=== PATIENT | female | born 1960 | race Caucasian/White ===

== ENCOUNTER 2016-08-11 21:37 | Emergency (ER) | payer OTHER ==
[~2016-08-11] VITALS: Ht 162.6 cm; Wt 63.5 kg
[~2016-08-11 21:37] MED LIST: BUFFERIN LOW DO81 MG PO; MOTRIN 600 MG600 MG PO; PAROXETINE HYDR10 MG PO; PAXIL10 MG PO; VIBRAMYCIN 100100 MG PO; XANAX0.5 MG PO
--- NOTE | 2016-08-11 22:14 | ED GI/GU/ABDOMINAL COMPLAINT ---
History of Present Illness General Chief Complaint: Abdominal Pain/Flank Pain Stated Complaint: ABDOMINAL PAIN Source: patient Exam Limitations: no limitations Vital Signs & Intake/Output Vital Signs & Intake/Output Vital Signs Date Time Temp Pulse Resp B/P B/P Pulse O2 O2 Flow FiO2 Mean Ox Delivery Rate 08/12 0004 97.9 64 18 124/88 100 Room Air 08/11 2148 98.8 62 20 120/84 99 ED Intake and Output 08/12 0000 08/11 1200 Intake Total 1000 Output Total Balance 1000 Intake, IV 1000 Patient 140 lb Weight Weight Reported by Patient Measurement Method Allergies Coded Allergies: NO KNOWN ALLERGIES (11/26/13) Reconcile Medications Amoxicillin/Clavulanate Potass (Amox-Clav 875-125 MG Tablet) 875 MG-125 MG TABLET 1 TAB PO BID ANTIBIOTIC (Reported) Ondansetron (Zofran Odt) 4 MG TAB.RAPDIS 1 TAB SL TID nausea Paroxetine HCl (Paxil) 10 MG TABLET 1 TAB PO QPM ANXIETY (Reported) Triage Note: BIBA FROM HOME, VOMITTED 6 TIMES SINCE 6PM. STARTED ON AMITIZA TODAY AND HAD CRAMPING ABOUT [address] WAITE FOR CHRONIC CONSTIPATION. Triage Nurses Notes Reviewed? yes LMP (ages 10-50): post menopausal ? N Is pt currently ? No Onset: Abrupt Duration: hour(s):, constant, continues in ED Timing: single episode today Quality/Severity: cramping, severe Severity Numbers: 4 Location: generalized abdomen Radiation: no radiation Activities at Onset: none Prior Abdominal Problems: none Past Sexual History: Unobtainable at this time Sexually Active: Yes No Modifying Factors: none Associated Symptoms: abdominal pain, diarrhea, nausea/vomiting HPI: 55-year-old female history of anxiety brought in by ambulance complaining of abdominal pain nausea vomiting and diarrhea. Patient reports she has been dealing with constipation nausea and vomiting over the past 2 months. Today she was seen by her GI doctor for the nausea and constipation and started on AMITIZA which is a laxative. Patient reports immediately after taking a laxative she began having severe cramping abdominal pain located diffusely in her abdomen along with worsening nausea and vomiting. Pain is described as severe cramping that is worse with any type of movement or touching the area. Patient reports vomiting was nonbloody and contained food particles. She also reports a single episode of diarrhea earlier today after the pain started. She reports that since arriving to the emergency department her pain has improved significantly. Pain was initially a 9 out of 10 and is now a 4 out of 10. No other associated symptoms. (ELVIA SHAIKH PA-C) Past History Travel History Traveled to [place] past 21 day No Medical History Any Pertinent Medical History? 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 No (ELVIA SHAIKH PA-C) Review of Systems Review of Systems Constitutional: Reports: no symptoms. EENTM: Reports: no symptoms. Respiratory: Reports: no symptoms. Cardiovascular: Reports: no symptoms. GI: Reports: see HPI, abdominal pain, constipation, diarrhea, nausea. Genitourinary: Reports: no symptoms. Musculoskeletal: Reports: no symptoms. Skin: Reports: no symptoms. Neurological/Psychological: Reports: no symptoms. Hematologic/Endocrine: Reports: no symptoms. Immunologic/Allergic: Reports: no symptoms. All Other Systems: Reviewed and Negative (ELVIA SHAIKH PA-C) Physical Exam Physical Exam General Appearance: well developed/nourished, alert, awake, anxious, mild distress Head: atraumatic, normal appearance Eyes: Bilateral: normal appearance, PERRL, EOMI, normal inspection. Ears, Nose, Throat, Mouth: hearing grossly normal, moist mucous membrane Neck: normal inspection, supple, full range of motion, normal alignment Respiratory: normal breath sounds, chest non-tender, no respiratory distress, lungs clear Cardiovascular: regular rate/rhythm, normal peripheral pulses Peripheral Pulses: 2+ radial (R), 2+ radial (L) Gastrointestinal: normal bowel sounds, soft, tenderness (RLQ, LLQ) Back: normal inspection, normal range of motion, no vertebral tenderness Extremities: normal range of motion Neurologic/Psych: no motor/sensory deficits, awake, alert, oriented x 3, normal gait, normal mood/affect Skin: intact, normal color, warm/dry Core Measures ACS in differential dx? No Severe Sepsis Present: No Septic Shock Present: No (BLACK PA-C,ELVIA) Progress Differential Diagnosis: AMI, appendicitis, biliary colic, bowel obstruction, cholecystitis, diverticulitis, gastritis, inflamm bowel dis, ovarian cyst, peptic ulcer, PUD/GERD, perforated viscous, SBO, UTI/pyelo Plan of Care: Orders Procedure Date/time Status Add-on Test (ER Only) 08/11 2356 Active CULTURE,URINE 08/11 2356 Active Add-on Test (ER Only) 08/11 2222 Active EKG 08/11 2222 Active URINALYSIS 08/11 2206 Complete LIPASE 08/11 2206 Complete LACTIC ACID 08/11 2206 Complete C-REACTIVE PROTEIN 08/11 2206 Complete COMPREHENSIVE METABOLIC PANEL 08/11 2206 Complete CBC WITHOUT DIFFERENTIAL 08/11 2206 Complete TROPONIN LEVEL 08/11 2204 Complete Laboratory Tests 08/12/16 0107: Lactic Acid Cancelled 08/11/16 2320: Urine Color YEL, Urine Clarity CLEAR, Urine pH 6.5, Ur Specific Amo <= 1.005 , Urine Protein NEG, Urine Ketones NEG, Urine Nitrite NEG, Urine Bilirubin NEG, Urine Urobilinogen 0.2, Ur Leukocyte Esterase TRACE H, Ur Microscopic SEDIMENT EXAMINED, Urine WBC RARE, Ur Epithelial Cells FEW, Urine Hemoglobin NEG, Urine Glucose NEG 08/11/162222: Troponin I Cancelled 08/11/162204: Anion Gap 16, Estimated GFR > 60, BUN/Creatinine Ratio 16.3, Glucose 92, Lactic Acid 1.9, Calcium 10.5 H, Total Bilirubin 0.7, AST 29, ALT 46, Alkaline Phosphatase 94, Troponin I < 0.01, C-Reactive Prot, Quant < 0.5, Total Protein 8.1, Albumin 5.0, Globulin 3.1, Albumin/Globulin Ratio 1.6, Lipase 125, CBC w Diff NO MAN DIFF REQ, RBC 4.32, MCV 88.2, MCH 29.5, RDW 13.8, MPV 9.3, Gran % 73.1, Lymphocytes % 20.1 L, Monocytes % 5.7, Eosinophils % 0.7, Basophils % 0.4 , Absolute Granulocytes 8.4 H, Absolute Lymphocytes 2.3, Absolute Monocytes 0.7 H, Absolute Eosinophils 0.1, Absolute Basophils 0, PUBS MCHC 33.5 Microbiology 08/11 2320 URINE ROUT: Urine Culture - RECD Patient seen and evaluated. 1 L of normal saline and 4 mg of Zofran IV were given. Basic blood work was drawn and CT of the abdomen and pelvis with IV contrast was ordered. EKG and troponin were added as patient was reporting some mild chest tightness. Follow up on results of CT and blood work. 11:[address] scan abdomen and pelvis is within normal limits. Blood work is within normal limits limits. Urine is showing small amount of leukocyte esterase we will send it for culture. Patient reports she is feeling much better and wants to go home. Patient will be discharged, follow-up with her GI doctor tomorrow. Patient will return to emergency department with any concerns. discussed all results with patient. She is currently nontoxic appearing. Case was discussed with Dr. Dumont and he is in agreement with the plan. (NEEL COYLE,ELVIA) Diagnostic Imaging: Viewed by Me: CT Scan. Initial ED EKG: normal sinus rhythm, mild QTC prolongation Prior EKG: unchanged (QTc borderline elevated) Comments: EXAM TYPE: CAT - CT ABD & PELVIS W IV CONTRAST EXAMINATION: CT ABDOMEN AND PELVIS WITH CONTRAST CLINICAL INFORMATION: Abdominal pain. Nausea. COMPARISON: None TECHNIQUE: Multidetector volumetric imaging was performed of the abdomen and pelvis after the IV administration of 95 mL of Optiray 320 intravenous contrast. Sagittal and coronal reformatted images were obtained on the technologist's workstation. DLP: 281.39 mGy-cm FINDINGS: LUNG BASES: The visualized lung bases are unremarkable. LIVER, GALLBLADDER, AND BILIARY TREE: The liver is normal in size, shape, and attenuation. No focal hepatic lesion or biliary ductal dilatation is present. The gallbladder is unremarkable with no evidence of radiopaque gallstones, gallbladder wall thickening, or obvious pericholecystic inflammatory changes. PANCREAS: Unremarkable. SPLEEN: Unremarkable. ADRENAL GLANDS: Unremarkable. KIDNEYS AND URETERS: The kidneys are normal in size, shape, and attenuation. No hydronephrosis, hydroureter, or calculi seen. No perinephric stranding. BLADDER: Unremarkable. GASTROINTESTINAL TRACT: The small and large bowel are unremarkable. The appendix is normal. There is no inflammation the mesentery. ABDOMINAL WALL: No significant hernia is appreciated. LYMPH NODES: Normal. VASCULAR: Unremarkable. PELVIC VISCERA: Uterus is anteverted. No adnexal abnormality. OSSEOUS STRUCTURES: Unremarkable. IMPRESSION: No acute abnormality CT scan abdomen pelvis. DICTATED BY: LOIDA SAUL MD DATE/TIME DICTATED:08/11/162323 FREIGHT SERVICE INSPECTOR:ANAYA DATE/TIME TRANSCRIBED:08/11/162323 (ELVIA SHAIKH PA-C) Departure Departure Disposition: HOME OR SELF CARE Condition: Stable Clinical Impression Primary Impression: Abdominal pain Qualifiers: Abdominal location: generalized Qualified Code: R10.84 - Generalized abdominal pain Referrals: JAYESH GREEN,ZACKARY Ponce (PCP/Family) Additional Instructions: Resting plenty of fluids. Eat bland foods such as bananas rice applesauce and toast. Zofran as needed for nausea. Make a follow-up on it with your GI doctor tomorrow. Return to emergency department with any concerns. Please go over all results of today's visit with your primary care doctor. Contact your primary care doctor to let them know you were here in the emergency room. There may be nonspecific findings which may not be related to your visit today here in the emergency room but may require further evaluation and chronic monitoring by your primary care doctor. If you had a laceration today the chance of foreign body always remains. You should follow-up with your primary care doctor for recheck in 3-5 days for a wound check. If you had an x-ray done there is a chance that a fracture could have been missed on initial read and you should follow-up with your primary care doctor for repeat x-rays if symptoms persist. If your blood pressure was elevated here in the emergency room please have rechecked by her primary care doctor within the next 48 hours by your primary care doctor. If you were prescribed a narcotic here in the emergency room or any type of controlled substances you're not allowed to drive while taking this medication or operate any type of heavy machinery. Narcotics can make you feel lightheaded dizziness nausea and can cause constipation. 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 Thank you for choosing [facility] emergency room. Please return to the emergency room immediately if you have any other concerns worsening of symptoms. Departure Forms: Customer Survey General Discharge Information Prescriptions: Current Visit Scripts Ondansetron (Zofran Odt) 1 TAB SL TID #20 TAB (ELVIA SHAIKH PA-C) PA/ENVIRONMENTAL REMEDIATION CONSULTANT Co-Sign Statement Statement: ED Attending supervision documentation- [] I saw and evaluated the patient. I have also reviewed all the pertinent lab results and diagnostic results. I agree with the findings and the plan of care as documented in the PA's/ENVIRONMENTAL REMEDIATION CONSULTANT's documentation. [X] I have reviewed the ED Record and agree with the PA's/ENVIRONMENTAL REMEDIATION CONSULTANT's documentation. [] Additions or exceptions (if any) to the PAs/ENVIRONMENTAL REMEDIATION CONSULTANT's note and plan are summarized below: [] (MAYCOL GREEN,ARNIE Deleon)
[2016-08-11 22:24] LABS: ABSOLUTE BASOPHIL COUNT 0 /CUMM (0.0-0.2); ABSOLUTE EOSINOPHIL COUNT 0.1 /CUMM (0.0-0.7); ABSOLUTE GRANULOCYTE CT 8.4 /CUMM (1.4-6.5); ABSOLUTE LYMPH COUNT 2.3 /CUMM (1.2-3.4); ABSOLUTE MONOCYTE COUNT 0.7 /CUMM (0.10-0.60); BASOPHIL % 0.4 % (0.0-2.0); EOSINOPHIL % 0.7 % (0-5); HEMATOCRIT 38.1 % (37-47); MEAN CORPUSCULAR HGB 29.5 PG (27.0-31.0); MEAN CORPUSCULAR HGB CONC 33.5 G/DL (33.0-37.0); MEAN CORPUSCULAR VOLUME 88.2 FL (81.0-99.0); MEAN PLATELET VOLUME 9.3 FL (7.4-10.4); PLATELET COUNT 298 /CUMM (130-400); RBC DISTRIBUTION WIDTH 13.8 % (11.5-14.5); RED BLOOD CELL CT 4.32 /CUMM (4.20-5.40); WHITE BLOOD CELL COUNT 11.5 /CUMM (4.8-10.8)
[2016-08-11 22:26] LABS: GRANULOCYTE % 73.1 % (42.2-75.2)
[2016-08-11] MEDS ORDERED: PAXIL10 M1 PO (23:05)
[2016-08-11] MEDS ORDERED: AMOX-CLAV 875-1 EACH PO (23:05)
--- NOTE | 2016-08-11 23:32 | CT SCAN REPORT ---
EXAMINATION: CT ABDOMEN AND PELVIS WITH CONTRAST CLINICAL INFORMATION: Abdominal pain. Nausea. COMPARISON: None TECHNIQUE: Multidetector volumetric imaging was performed of the abdomen and pelvis after the IV administration of 95 mL of Optiray 320 intravenous contrast. Sagittal and coronal reformatted images were obtained on the technologist's workstation. DLP: 281.39 mGy-cm FINDINGS: LUNG BASES: The visualized lung bases are unremarkable. LIVER, GALLBLADDER, AND BILIARY TREE: The liver is normal in size, shape, and attenuation. No focal hepatic lesion or biliary ductal dilatation is present. The gallbladder is unremarkable with no evidence of radiopaque gallstones, gallbladder wall thickening, or obvious pericholecystic inflammatory changes. PANCREAS: Unremarkable. SPLEEN: Unremarkable. ADRENAL GLANDS: Unremarkable. KIDNEYS AND URETERS: The kidneys are normal in size, shape, and attenuation. No hydronephrosis, hydroureter, or calculi seen. No perinephric stranding. BLADDER: Unremarkable. GASTROINTESTINAL TRACT: The small and large bowel are unremarkable. The appendix is normal. There is no inflammation the mesentery. ABDOMINAL WALL: No significant hernia is appreciated. LYMPH NODES: Normal. VASCULAR: Unremarkable. PELVIC VISCERA: Uterus is anteverted. No adnexal abnormality. OSSEOUS STRUCTURES: Unremarkable. IMPRESSION: No acute abnormality CT scan abdomen pelvis.
[2016-08-11] MEDS ORDERED: ZOFRAN ODT4 M1 SL (23:50)
[2016-08-12 00:04] VITALS: BP 124/88
== END 2016-08-12 00:04 ==
LOC: ERH 21:37
PROVIDERS: Physician Assistant Medical
DX: R10.31 Right lower quadrant pain (principal); R10.32 Left lower quadrant pain
CPT/HCPCS: 74177; 81001; 87086; 93005; 93010; 96361; 96374; J2405